=== PATIENT | male | born 1940 | race Caucasian/White ===

== ENCOUNTER → 2016-11-03 | Outpatient (CLI) | payer MEDICARE, BC ==
[~2016-11-03] MED LIST: ALBUTEROL0.63 MG/3 INH; ASMANEX220 MC1 INH; ASPIR-LOW81 MG PO; BETA CAROT25000 UNIT PO; CO Q-10100 MG PO; FLONASE 0.05% N16 GM; HYDROCHLOROTH12.5 M1 PO; JALYN 0.5-0.41 EACH PO; K-TAB ER20 MEQ PO; LASIX20 MG PO; LEVAQUIN750 MG PO; NORVASC 5 MG TAB5 MG PO; PROVENTIL HFA 61 INH INH; SIMVASTATIN20 MG PO; SINGULAIR10 MG PO; SPIRIVA18 MCG INH; VENTOLIN HFA 66.7 GM INH; XOLAIR 150150 MG/VIA INJ; ZYVOX600 MG PO
== END ==
LOC: OPSV 10:45
DX: J45.909 Unspecified asthma, uncomplicated (principal)
CPT/HCPCS: 96372; J2357

== ENCOUNTER → 2016-11-17 | Outpatient (CLI) | payer MEDICARE, BC ==
[~2016-11-17] VITALS: Ht 182.9 cm; Wt 88.5 kg
== END ==
LOC: OPSV 10:41
DX: J45.909 Unspecified asthma, uncomplicated (principal); Z88.2 Allergy status to sulfonamides
CPT/HCPCS: 96372; J2357

== ENCOUNTER → 2016-12-01 | Outpatient (CLI) | payer MEDICARE, BC | LOC: OPSV 10:45 | DX: J45.909 Unspecified asthma, uncomplicated (principal) | CPT/HCPCS: 96372; J2357 ==

== ENCOUNTER → 2016-12-15 | Outpatient (CLI) | payer MEDICARE, BC ==
[~2016-12-15] VITALS: Ht 182.9 cm; Wt 88.5 kg
== END ==
LOC: OPSV 10:42
DX: J45.909 Unspecified asthma, uncomplicated (principal)
CPT/HCPCS: 96372; J2357

== ENCOUNTER → 2016-12-29 | Outpatient (CLI) | payer MEDICARE, BC ==
[~2016-12-29] VITALS: Ht 182.9 cm; Wt 88.5 kg
== END ==
LOC: OPSV 10:41
DX: J45.909 Unspecified asthma, uncomplicated (principal)
CPT/HCPCS: 96372; J2357

== ENCOUNTER → 2017-01-12 | Outpatient (CLI) | payer MEDICARE, BC ==
[~2017-01-12] VITALS: Ht 182.9 cm; Wt 88.5 kg
== END ==
LOC: OPSV 10:41
DX: J45.909 Unspecified asthma, uncomplicated (principal)
CPT/HCPCS: 96372; J2357

== ENCOUNTER → 2017-01-26 | Outpatient (CLI) | payer MEDICARE, BC ==
[~2017-01-26] VITALS: Ht 182.9 cm; Wt 88.5 kg
== END ==
LOC: OPSV 10:00
DX: J45.909 Unspecified asthma, uncomplicated (principal)
CPT/HCPCS: 96372; J2357

== ENCOUNTER → 2017-02-09 | Outpatient (CLI) | payer MEDICARE, BC ==
[~2017-02-09] VITALS: Ht 182.9 cm; Wt 88.5 kg
== END ==
LOC: OPSV 10:47
DX: J45.909 Unspecified asthma, uncomplicated (principal)
CPT/HCPCS: 96372; J2357

== ENCOUNTER → 2017-02-23 | Outpatient (CLI) | payer MEDICARE, BC ==
[~2017-02-23] VITALS: Ht 182.9 cm; Wt 88.5 kg
== END ==
LOC: OPSV 10:44
DX: J47.1 Bronchiectasis with (acute) exacerbation (principal); J45.40 Moderate persistent asthma, uncomplicated
CPT/HCPCS: 96372; J2357

== ENCOUNTER 2020-09-04 10:48 | Emergency (ER) | payer MEDICARE, BC ==
[~2020-09-04 10:48] MED LIST changes: +ACTOS TAB 15MG15 MG PO; +ADVAIR 250-501 EACH INH; +ADVAIR 500-501 EACH INH; +ALOE VERA25 MG PO; +ATORVASTATIN CA20 MG PO; +CEFUROXIME250 MG PO; +COMBIVENT RESPIM4 GM INH; +CURCUMIN250 GM PO; +DILTIAZEM 24HR180 M1 PO; +DOXYCYCLINE HY100 M2 PO; +DOXYCYCLINE HY100 MG PO; +FLAX SEED OIL1000 MG PO; +FLOMAX 0.4 MG0.4 MG PO; +FLUZONE QU60 MCG/015 IM; +FOLIC ACID0.8 MG PO; +FUROSEMIDE40 MG PO; +ICAPS AREDS SO1 EACH PO; +K-DUR TAB 20 M20 MEQ PO; +KITABIS PA300 MG/5 M INH; +LASIX40 MG PO; +LEVOFLOXACIN500 MG PO; +MIRALAX17 GM PO; +MYCOSTATIN100000 UTS PO; +NORVASC10 MG PO; +PREDNISONE 10 M10 MG PO; +PROTONIX40 MG PO; +SAW PALMETTO450 MG PO; +VITAMIN C125 MG PO; +VITAMIN D35000 UNI1 PO; +VITAMIN E400 UNI2 PO; +XALATAN OP SOL2.5 ML OP; +ZESTRIL2.5 MG PO; +ZOCOR 40 MG TAB40 MG PO; +ZYVOX 600 MG T600 MG PO; +[UNRECOGNIZED DRUG - OTHER] PO
[2020-09-04 11:25] LABS: HEMOGLOBIN 13.8 gm/dl (14.0-17.5); RED BLOOD COUNT 5.15 M/UL (4.20-5.50); WHITE BLOOD COUNT 12.6 K/UL (4.5-11.0)
[2020-09-04 11:54] LABS: BUN/CREATININE RATIO 32 (0-10)
[2020-09-04] MEDS ORDERED: MACROBID 100 M100 MG PO (13:30)
[2020-09-04] MEDS ORDERED: ZOFRAN4 MG PO (13:35)
== END 2020-09-04 14:48 | disposition home or self-care (01) ==
LOC: ER1 10:48
PROVIDERS: Physician Assistant
DX: N39.0 Urinary tract infection, site not specified (principal); I11.0 Hypertensive heart disease with heart failure; I50.9 Heart failure, unspecified; J44.9 Chronic obstructive pulmonary disease, unspecified; Z86.79 Personal history of other diseases of the circulatory system; Z88.2 Allergy status to sulfonamides; Z95.5 Presence of coronary angioplasty implant and graft
CPT/HCPCS: 80053; 81001; 82550; 82553; 83874; 84484; 85025; 87086; 93005; 96374; 99284; J2405; J7030